=== PATIENT | female | born 1995 | race Caucasian/White ===

== ENCOUNTER 2017-09-17 18:18 | Emergency (ER) | payer SELFPAY ==
[~2017-09-17] VITALS: Ht 160 cm; Wt 68.0 kg
[2017-09-17] MEDS ORDERED: PENICILLIN-VK500 MG PO (18:44)
== END 2017-09-17 19:00 | disposition home or self-care (01) ==
LOC: ED 18:18
DX: K04.7 Periapical abscess without sinus (principal); Z88.2 Allergy status to sulfonamides